=== PATIENT | female | born 1960 | race Hispanic/Latino ===

== ENCOUNTER 2019-04-25 21:01 | Emergency (ER) | payer OTHER ==
[2019-04-25 22:23] LABS: RAPID GROUP A STREP NEGATIVE (NEGATIVE)
== END 2019-04-25 22:38 | disposition home or self-care (01) ==
LOC: EDH 21:01
DX: J06.9 Acute upper respiratory infection, unspecified (principal)
CPT/HCPCS: 87804; 87880